=== PATIENT | male | born 1950 | race Caucasian/White ===

== ENCOUNTER 2017-01-03 04:43 | Emergency (ER) | payer BC ==
[~2017-01-03] VITALS: Ht 167.6 cm; Wt 88.4 kg
[2017-01-03 04:50] VITALS: TEMP 36.7; Ht 167.6 cm; Wt 88.4 kg
[2017-01-03] MEDS ORDERED: ONDANSETRON INJ 2 MG/ML 2 ML VIAL IV STA (05:16)
[2017-01-03] MEDS ORDERED: SODIUM CHLORIDE 0.9% 1000ML 1,000 ML IV STA (05:16)
[2017-01-03 05:36] LABS: COMPLETE YES; EOS % 0.4 %; HEMATOCRIT 48.8 % (42-52); IG% 0.3 %; LYMPH % 4.9 %; LYMPH ABS # 0.36 K/uL (1.2-3.4); MEAN CORPUSCULAR HEMOGLOBIN 31.6 pg (25-34); MEAN CORPUSCULAR HGB CONC 33.6 g/dl (32-36); MEAN PLATELET VOLUME 9.6 fL (7.4-10.4); MONO % 5.1 %; NEUT % 89.3 %; PLATELET COUNT 183 K/uL (130-400); RED BLOOD COUNT 5.19 M/uL (4.7-6.1); WHITE BLOOD COUNT 7.31 K/uL (4.8-10.8)
[2017-01-03 05:44] LABS: BLOOD UREA NITROGEN 22 mg/dl (7-18); GLUCOSE 138 mg/dl (70-99)
[2017-01-03 05:45] LABS: ALT/SGPT 31 U/L (12-78); AST/SGOT 20 U/L (15-37); BUN/CREATININE RATIO 19.7 (10-20); CALCIUM 8.8 mg/dl (8.5-10.1); CARBON DIOXIDE 27 mmol/L (21-32); CHLORIDE 107 mmol/L (98-107); POTASSIUM 3.9 mmol/L (3.5-5.1); SODIUM 143 mmol/L (136-145)
[2017-01-03 05:46] LABS: PARTIAL THROMBOPLASTIN RATIO 0.9; PROTHROMBIN TIME (PATIENT) 10.6 SECONDS (9.0-12.0)
[2017-01-03 05:50] LABS: ALKALINE PHOSPHATASE 65 U/L (45-117)
--- NOTE | 2017-01-03 06:09 | EMERGENCY ROOM VISIT NOTE ---
History Report prepared by Aditya: Radha Walls Under the Supervision of: Dr. Manda Love D.O. First contact with patient: 04:49 Chief Complaint: VOMITING Stated Complaint: DIARRHEA,THROWING UP, AND BLOOD History of Present Illness The patient is a 66 year old male who presents to the Emergency Room with complaints of intermittent vomiting beginning [employer]ITTER [employer]IN. The patient had dinner at [employer] last night. He ate chicken fingers and cheese sticks. He came home and fell asleep in his chair. He woke up at 0200 with a sudden onset of diarrhea. Shortly after that he developed vomiting. reports hematemesis. The patient states that he initially thought that his nose was bleeding and then realized that he was vomiting blood. He drank 2 red Gatorades [employer]. reports that family members at home are sick with similar symptoms. Patient denies any abdominal pain. He is not on any blood thinners. He has a history of stomach ulcers from the s. Source of History: patient, spouse/significant other Onset: OUTFITTER CABIN Position: other (stomach - vomiting) Quality: other (blood) Timing: intermittent Associated Symptoms: + diarrhea, No abdominal pain Review of Systems See HPI for pertinent positives & negatives. A total of 10 systems reviewed and were otherwise negative. Past Medical & Surgical Medical Problems: (1) History of stomach ulcers Family History No pertinent history stated. Social History Smoking Status: Former Smoker Marital Status: Housing Status: lives with significant other Current/Historical Medications Scheduled Omeprazole (Prilosec), 1 CAP PO DAILY Allergies Coded Allergies: Aspirin (Unverified Allergy, Unknown, ulcers, 01/03/17) Physical Exam Vital Signs Date Time Temp Pulse Resp B/P Pulse Ox O2 Delivery O2 Flow Rate FiO2 01/03/17 08:03 100 18 105/64 94 Room Air 01/03/17 07:00 90 16 109/60 92 Room Air 01/03/17 06:19 85 20 103/61 94 Room Air 01/03/17 05:18 91 01/03/17 04:53 84 20 111/82 96 Room Air 01/03/17 04:50 36.7 92 21 111/82 97 Room Air Physical Exam General: The patient is a 66 year old male. HEENT: Head - normocephalic and atraumatic Pupils are equal, round, and reactive to light. Extraocular eye muscles are intact, and sclera are anicteric. Nose - moist nasal mucosa without discharge. Mouth - moist buccal mucosa. Petechiae all over soft palate. Oropharynx is nonerythematous and there is no tonsillar exudate or edema noted. Neck: Supple; no JVD, nuchal rigidity, cervical lymphadenopathy. Heart: Regular rate and rhythm. There is a normal S1 and S2 with no murmurs, clicks, or gallops appreciated. Lungs: Clear to auscultation bilaterally with no wheezes, rales, or rhonchi. Abdomen: Soft, completely nontender, nondistended, with good bowel sounds. There are no palpable pulsatile masses or hepatosplenomegaly. There is no guarding, rigidity, or rebound noted. Extremities: No evidence of cyanosis, clubbing, or edema. There are easily palpable peripheral pulses. Skin: warm and dry with good turgor and no rashes. Medical Decision & Procedures Laboratory Results 01/03/17 05:02 Red Blood Count 5.19, Mean Corpuscular Volume 94.0, Mean Corpuscular Hemoglobin 31.6, Mean Corpuscular Hemoglobin Concent 33.6, Mean Platelet Volume 9.6, Neutrophils (%) (Auto) 89.3, Lymphocytes (%) (Auto) 4.9, Monocytes (%) (Auto) 5.1, Eosinophils (%) (Auto) 0.4, Basophils (%) (Auto) 0.0, Neutrophils # (Auto) 6.53, Lymphocytes # (Auto) 0.36, Monocytes # (Auto) 0.37, Eosinophils # (Auto) 0.03, Basophils # (Auto) 0.00 01/03/17 05:02 Test 01/03/17 05:02 White Blood Count 7.31 K/uL (4.8-10.8) Red Blood Count 5.19 M/uL (4.7-6.1) Hemoglobin 16.4 g/dL (14.0-18.0) Hematocrit 48.8 % (42-52) Mean Corpuscular Volume 94.0 fL (80-100) Mean Corpuscular Hemoglobin 31.6 pg (25-34) Mean Corpuscular Hemoglobin Concent 33.6 g/dl (32-36) Platelet Count 183 K/uL (130-400) Mean Platelet Volume 9.6 fL (7.4-10.4) Neutrophils (%) (Auto) 89.3 % Lymphocytes (%) (Auto) 4.9 % Monocytes (%) (Auto) 5.1 % Eosinophils (%) (Auto) 0.4 % Basophils (%) (Auto) 0.0 % Neutrophils # (Auto) 6.53 K/uL (1.4-6.5) Lymphocytes # (Auto) 0.36 K/uL (1.2-3.4) Monocytes # (Auto) 0.37 K/uL (0.11-0.59) Eosinophils # (Auto) 0.03 K/uL (0-0.5) Basophils # (Auto) 0.00 K/uL (0-0.2) RDW Standard Deviation 45.6 fL (36.4-46.3) RDW Coefficient of Variation 13.3 % (11.5-14.5) Immature Granulocyte % (Auto) 0.3 % Immature Granulocyte # (Auto) 0.02 K/uL (0.00-0.02) Prothrombin Time 10.6 SECONDS (9.0-12.0) Prothromb Time International Ratio 1.0 (0.9-1.1) Activated Partial Thromboplast Time 23.3 SECONDS (21.0-31.0) Partial Thromboplastin Ratio 0.9 Anion Gap 9.0 mmol/L (3-11) Est Creatinine Clear Calc Drug Dose 69.7 ml/min Estimated GFR () 81.2 Estimated GFR (Non- 70.1 BUN/Creatinine Ratio 19.7 (10-20) Calcium Level 8.8 mg/dl (8.5-10.1) Total Bilirubin 0.6 mg/dl (0.2-1) Direct Bilirubin 0.1 mg/dl (0-0.2) Aspartate Amino Transf (AST/SGOT) 20 U/L (15-37) Alanine Aminotransferase (ALT/SGPT) 31 U/L (12-78) Alkaline Phosphatase 65 U/L (45-117) Total Creatine Kinase 148 U/L (39-308) Creatine Kinase MB 4.5 ng/ml (0.5-3.6) Creatine Kinase MB Ratio 3.0 (0-3.0) Troponin I < 0.015 ng/ml (0-0.045) Total Protein 8.0 gm/dl (6.4-8.2) Albumin 4.4 gm/dl (3.4-5.0) Lipase 203 U/L (73-393) Laboratory results per my review. Medications Administered Medications (Trade) Dose Ordered Sig/Tara Route Start Time Stop Time Status Last Admin Dose Admin Sodium Chloride (Nss 1000ml) 1,000 ml @ 999 mls/hr Q1H1M STAT IV 01/03/17 05:16 01/03/17 06:16 DC 01/03/17 06:15 999 MLS/HR Ondansetron HCl 4 mg 4 mg NOW STAT IV 01/03/17 05:16 01/03/17 05:17 DC 01/03/17 05:30 4 MG Pantoprazole Sodium/Syringe (Protonix Inj/ Syringe) 10 ml @ 5 mls/min NOW ONCE IV 01/03/17 06:15 01/03/17 06:16 DC 01/03/17 06:36 5 MLS/MIN Procedure Medications Administered: Zofran 4 mg IV NSS 1000 ml @ 999 mls/hr IV Pantoprazole Sodium 10 ml @ 5 mls/min IV NGT was placed ECG Indication: vomiting Rate (beats per minute): 92 Rhythm: normal sinus Findings: no acute ischemic change, no ectopy ED Course 0509: Past medical records reviewed. The patient was evaluated in room A9B. A complete history and physical exam was performed. 0516: Zofran 4 mg IV, NSS 1000 ml @ 999 mls/hr IV 0601: I reassessed the patient at this time. The NG tube went in and a very small amount of blood came out. He drank water and had no more nausea and no more episodes of vomiting. 0615: Pantoprazole Sodium 10 ml @ 5 mls/min IV 0651: I reassessed the patient at this time. He is feeling better and resting comfortably. I discussed the results and treatment plan with the patient. I answered all pertaining questions that he had. He expressed understanding and verbalized agreement. The patient will be discharged home once he finishes his Protonix. Medical Decision The patient is a 66 year old male who presents to the ED with vomiting. Differential diagnosis includes gastritis, food borne illness, viral illness, GI bleed, ulcerative disease. White count 7.3, stable H&H, BUN 22, creatinine 1.1, glucose 138, LFTs are normal, troponin less than 0.015, lipase is normal, coagulation studies are normal. The patient presents with an episode of significant vomiting and diarrhea which led to some hematemesis. The patient has no significant history of this. He did suffer from some intestinal ulcers in the . He has not been taking NSAIDs or aspirin. The symptom onset was very abrupt and there are other sick individuals in the home. I believe this is most likely an acute GI viral illness with a harsh retching and vomiting which led to some esophagitis or gastritis with hematemesis. The NG tube did not produce a significant amount of blood. The patient was feeling much better at the time of discharge. He was given IV Protonix here and will start taking Prilosec daily for the next couple of weeks. I have asked him to follow-up with his PCP for referral to GI for EGD if any symptoms persist. Impression Primary Impression: Hematemesis Scribe Attestation The scribe's documentation has been prepared under my direction and personally reviewed by me in its entirety. I confirm that the note above accurately reflects all work, treatment, procedures, and medical decision making performed by me. Departure Information Dispostion Home / Self-Care Prescriptions Omeprazole (PRILOSEC) 40 Mg Cap 1 CAP PO DAILY for 30 Days, #30 CAP 3 Refills Prov: Manda Love D.O. 01/03/17 Referrals Raul Briceño M.D. (PCP) Forms HOME CARE DOCUMENTATION FORM, IMPORTANT VISIT INFORMATION Patient Instructions ED Vomiting Diarrhea Nonspecific Ad, My [facility] Additional Instructions Rest. Take a bland diet and plenty of clear liquids Prilosec use as directed. No work for next 3 days Follow up with PCP for referral to GI Problem Qualifiers Primary Impression: Hematemesis Nausea presence: with nausea Qualified Codes: K92.0 - Hematemesis; R11.0 - Nausea
[2017-01-03] MEDS ORDERED: PANTOprazole INJ 40 MG in SYRINGE 0 ML IV ONE (06:15)
[2017-01-03] MEDS ORDERED: OMEP40CA41 PO (06:18)
[2017-01-03 08:03] VITALS: BP 105/64; PULSE 100; O2SAT 94
--- NOTE | 2017-01-06 06:17 | EDITING REQUIRED CODING QUERY ---
CODING QUERY To promote full compliance with coding requirements relating to patient care, provider participation is requested in all cases of competitive intelligence manager uncertainty. Please assist us with the question(s) below: Coding Question(s): Procedure section of ED Summary states NG tube was placed. Please give more details of placement as well as if nursing placed or if you placed. Physician's Response(s): NG tube was placed by nursing staff. Thank you Ileana Santos Principal Diagnosis: "_that condition established after study, to be chiefly responsible for occasioning the admission of the patient to the hospital for care." Co-Existing Principal Diagnosis: "_when two or more diagnoses equally meet the criteria for principal diagnosis as determined by the circumstances of admission, diagnostic work up, and/or therapy provided, and the Alphabetic Index, Tabular List, or another coding guideline does not provide sequencing direction, any one of the diagnoses may be sequenced first." "When the physician has documented what appears to be a current diagnosis in the body of the record, but has not included the diagnosis in the final diagnostic statement, the physician should be asked whether the diagnosis should be added." (Source Coding [facility] 2 QTR90. p3-4)
== END 2017-01-03 08:09 | disposition home or self-care (01) ==
LOC: C.EDB 04:44 → C.EDA 08:09
DX: K92.0 Hematemesis (principal); R19.7 Diarrhea, unspecified; Z87.891 Personal history of nicotine dependence